=== PATIENT | male | born 1930 | race Caucasian/White ===

== ENCOUNTER → 2016-07-11 | Outpatient (CLI) | payer BLACK LUNG, MEDICARE ==
[~2016-07-11] MED LIST: CRESTOR10 MG PO; DAKIN'S473 M1 TOP; ERYTHROMYCIN OP1 GM OP; NORCO 5-325 TA1 EACH PO; NORVASC 5 MG TAB5 MG PO; PLAVIX 75 MG TA75 MG PO; PROTONIX40 MG PO; SENOKOT-S TABL1 EACH PO; TENORMIN 50 MG50 MG PO; VITAMIN C 500500 MG PO
== END ==
LOC: KOH-I 12:44
DX: M86.072 Acute hematogenous osteomyelitis, left ankle and foot (principal); R60.0 Localized edema; M79.89 Other specified soft tissue disorders
CPT/HCPCS: 73718